=== PATIENT | female | born 1960 | race Caucasian/White ===

== ENCOUNTER → 2017-09-29 | Outpatient (CLI) | payer MEDICARE, MEDICAID ==
[~2017-09-29] MED LIST: ATOR10TA60 PO; CYCL5TAB PO; DIAZ2TAB PO; DICY10CA3 PO; GADOBUTROL 7.5 MMOL/7.5 ML VIAL IV ONE; HYDR-963 PO; OMEP20CA9 PO; PREG25CA PO
--- NOTE | 2017-09-29 15:37 | KCIC ---
MR of the musculoskeletal pelvis with and without contrast HISTORY: Left posterior buttock mass or 1.5 months. PVNS surgery in 2002. Partial hysterectomy. TECHNIQUE: Routine multiplanar sequences before and after contrast FINDINGS: There is a lobulated soft tissue mass along the posterior gluteus maude muscle surface measuring 3 cm cephalocaudal by 1.8 cm wide by 1.6 cm AP. This has a solid appearance with diffuse enhancement. This straddles the myofascial surface, with the mass protruding both into the gluteus muscle and into the subcutaneous fat. There is susceptibility type artifact in the area of the mass compatible with prior surgery in this region. No other soft tissue masses identified. Mild fluid signal located just below the hip, may represent fluid in a joint recess. Minimal intramuscular edema within the proximal abductors and obturator externus muscle. No bone lesion or acute fracture. No femoral head osteonecrosis. IMPRESSION: There is a solid enhancing mass at the posterior surface of the left gluteus maximums muscle, at its medial aspect. This is concerning for malignant process, in particular a soft tissue sarcoma. This could represent recurrence of a previous tumor resected in this area depending on the nature of the previous pathology. Tissue sampling will likely be necessary for accurate diagnosis. Electronically signed by: Tyler Malhotra MD (09/29/2017 3:34 PM) [id number]
== END | disposition home or self-care (01) ==
LOC: KCIC MRI 11:33
PROVIDERS: ATTEND Family Medicine
DX: R19.00 Intra-abdominal and pelvic swelling, mass and lump, unspecified site (principal)
CPT/HCPCS: 72197; A9585

== ENCOUNTER → 2018-04-21 | Outpatient (CLI) | payer MEDICARE, MEDICAID | END | disposition home or self-care (01) | LOC: KCIC DEXA 08:48 | DX: Z12.31 Encounter for screening mammogram for malignant neoplasm of breast (principal); Z13.820 Encounter for screening for osteoporosis; Z78.0 Asymptomatic menopausal state | CPT/HCPCS: 77063; 77067; 77080 ==